=== PATIENT | male | born 1990 | race Caucasian/White ===

== ENCOUNTER 2018-07-12 14:28 | Emergency (ER) | payer SELFPAY ==
[~2018-07-12] VITALS: Ht 175.3 cm; Wt 63.5 kg
[2018-07-12] MEDS ORDERED: LIDOCAINE 1% INJ 50 ML MDV IJ ONE (15:10)
--- NOTE | 2018-07-12 15:28 | NUR ---
pt walked into emergency room with c/c of L INDEX FINGER PAIN FROM A WOOD SPLINTER. UTD W/ TETANUS KIT
[2018-07-12] MEDS ORDERED: LIDOCAINE HCL/PF 1% 30 ML VIAL TP ONE ×2 (15:30)
[2018-07-12 16:31] VITALS: BP 138/75
--- NOTE | 2018-07-12 16:32 | NUR ---
pt discharged to home with friend will follow up at [facility] for further treatment pt given prescription and aci finger wrapped with kerlix
== END 2018-07-12 16:33 | disposition home or self-care (01) ==
LOC: ER 15:09
DX: S60.451A Superficial foreign body of left index finger, initial encounter (principal); W45.8XXA Other foreign body or object entering through skin, initial encounter; Y93.89 Activity, other specified; Y92.89 Other specified places as the place of occurrence of the external cause; Y99.0 Civilian activity done for income or pay
CPT/HCPCS: 64450; 99284; A4606; J3490 ×3